=== PATIENT | female | born 1935 | race Caucasian/White ===

== ENCOUNTER 2017-09-30 11:51 | Emergency (ER) | payer OTHER, BC ==
[2017-09-30] MEDS ORDERED: SILVER NITRATE APPLICATOR 1 APPL TP ONE (12:10)
[2017-09-30] MEDS ORDERED: OXYMETAZOLINE 30 ML NASAL SPRAY EACHNARE ONE (12:10)
[2017-09-30] MEDS ORDERED: COCAINE HCL 4% 4 ML BTL TP ONE (12:11)
--- NOTE | 2017-09-30 12:29 | EDPHY ---
H & P Stated Complaint: Spontaneous nosebleed Time Seen by Provider: 09/30/17 12:05 HPI/ROS: CHIEF COMPLAINT: Epistaxis HISTORY OF PRESENT ILLNESS: The patient presents to the ED with acute epistaxis that began earlier today after blowing her nose. The patient is on chronic oxygen therapy and Eliquis for AFib. She has no prior history of nose bleeds. She denies any lightheadedness or dizziness. She denies additional acute complaints. REVIEW OF SYSTEMS: A comprehensive 10 point review of systems is otherwise negative aside from elements mentioned in the history of present illness. Source: Patient Exam Limitations: No limitations - Personal History Current Tetanus Diphtheria and Acellular Pertussis (TDAP): Yes - Medical/Surgical History Hx Chronic Respiratory Disease: Yes Hx Cardiac Disease: Yes Other PMH: sleep apnea. afib - Social History Smoking Status: Former smoker - Physical Exam Exam: General Appearance: Alert, no distress Eyes: Pupils equal and round no pallor or injection ENT, Mouth: Bleeding from the right anterior nasal septum Respiratory: There are no retractions, lungs are clear to auscultation Cardiovascular: Regular rate and rhythm Gastrointestinal: Abdomen is soft and nontender, no masses, bowel sounds normal Neurological: Neurologically intact Skin: Warm and dry, no rashes Constitutional: Initial Vital Signs Heart Rate 79 09/30/17 11:55 Respiratory Rate 18 09/30/17 11:55 Blood Pressure 162/85 H 09/30/17 11:55 O2 Sat (%) 92 09/30/17 11:55 O2 Delivery Mode Room Air Allergies/Adverse Reactions: "some antibiotic" Allergy (Mild, Uncoded 09/30/17 12:00) Rash Home Medications: Medication Instructions Recorded Apixaban [Eliquis] 5 mg PO 09/30/17 Diltiazem [Cardizem 60 MG (*)] 60 mg PO 09/30/17 Metoprolol Succinate Xr [Toprol Xl 09/30/17 50 mg (*)] Omeprazole 20 mg PO 09/30/17 Sertraline HCl [Zoloft 50mg (*)] 50 mg PO DAILY 09/30/17 Triamterene [Dyrenium 50MG (*)] 50 mg PO DAILY 09/30/17 Medical Decision Making Procedures: Procedure: Epistaxis control. Indication: nosebleed not controlled by direct pressure. Risks, benefits, alternatives discussed with patient and consent obtained. The right nares was anesthetized with topical cocaine. The anterior epistaxis was identified. The patient was treated with vaso constriction and silver nitrate cautery. After period of observation the patient developed recurrent bleeding and required packing with a rhino rocket. A 4.5 cm anterior rhino rocket was inserted into the right nares. Following the procedure the patient was re- examined and the bleeding was well controlled. The patient tolerated the procedure well. The procedure was performed by myself. ED Course/Re-evaluation: The patient presents the ED with epistaxis which was treated with silver nitrate cautery and ultimately required packing. The patient is on a anticoagulant for atrial fibrillation. She will hold this medication for the next 2 days. The patient will follow up with ENT for packing removal in 3-4 days. She is discharged home with customary aftercare instructions and return precautions. - Data Points Medications Given: Discontinued Medications Cocaine HCl (Cocaine Hcl) 1 rose TP EDNOW ONE Stop: 09/30/17 12:12 Last Admin: 09/30/17 12:14 Dose: Not Given Oxymetazoline HCl (Afrin Nasal Lithia) 2 sprays EACHNARE EDNOW ONE Stop: 09/30/17 12:11 Last Admin: 09/30/17 12:14 Dose: Not Given Silver Nitrate/Potassium Nitrate (Silver Nitrate Applicator) 1 each TP EDNOW ONE Stop: 09/30/17 12:11 Last Admin: 09/30/17 12:14 Dose: Not Given Departure - Departure Disposition: Home, Routine, Self-Care Clinical Impression: Acute anterior epistaxis Condition: Good Instructions: Nosebleed (ED) Additional Instructions: 1. Please hold your blood thinner for the next 2 days. 2. Please follow up with the Ear Nose Throat specialist you have been referred to on Monday or Monday of next week for packing removal. 3. Please return to the ED for recurrent bleeding, lightheadedness or other concerns. Referrals: Ismael Crockett MD [Medical Doctor] - As per Instructions
[2017-09-30 13:29] VITALS: BP 142/94
== END 2017-09-30 13:28 | disposition home or self-care (01) ==
PROC: 095KXZZ Destruction of Nasal Mucosa and Soft Tissue, External Approach (ICD-10-PCS; principal; 2017-09-30)
DX: R04.0 Epistaxis (principal); Z87.891 Personal history of nicotine dependence